=== PATIENT | female | born 1945 | race Caucasian/White ===

== ENCOUNTER 2023-11-30 13:15 | Outpatient (CLI) | payer MEDICARE, SELFPAY ==
--- NOTE | ~2023-11-30 | MR_ITS ---
EXAMINATION: MR lumbar spine wo con, MR thoracic spine wo con DATE: 11/30/2023 14:34 INDICATION: Lumbar radiculopathy TECHNIQUE: 1. Magnetic resonance imaging (MRI) of the thoracic spine was performed without intravenous contrast. Sagittal localizer T1-weighted FSE of the cervicothoracic spine was obtained. Thoracic spine sequenc es included sagittal T2-weighted FSE, sagittal T1-weighted SE, Sagittal T2-weighted FS FSE, and axial T2-weighted FSE. 2. MRI of the lumbar spine was performed without intravenous contrast. Sequences included sagittal T2 -weighted FSE, sagittal T2-weighted FS FSE, sagittal T1-weighted FSE, and axial T2-weighted FSE. COMPARISON: None FINDINGS: Thoracic spine: 10 degrees upper thoracic levoscoliosis and 10 degrees mid to lower thoracic dextroscoliosis. Vertebr al body heights are normal. Moderate disc height loss with degenerative endplate changes at C5-C6 and C6-C7. Associated disc bulges resulting in mild central canal stenosis at both levels. Thoracic disc heights are normal with no disc bulges or central canal stenosis. There is multilevel mild thoracic facet osteoarthritis. This contributes to mild neural foraminal stenosis on the left at T8-T9 and T10 -T11. Visualized paravertebral soft tissues are unremarkable. Lumbar spine: 15 degree lumbar levoscoliosis centered at L2-L3. 2 mm retrolisthesis L2 on L3, L3 on L4 and L4 on L5 . Severe left-sided predominant disc height loss with prominent degenerative endplate changes and ass ociated fibrovascular degenerative endplate changes at L2-L3 and L3-L4. Aside from the degenerative e ndplate remodeling the lumbar vertebral body heights are normal and there is otherwise normal marrow signal. Mild disc height loss at L1-L2 and L5-S1 and moderate left-sided predominant disc height loss at L4-L5. The conus medullaris terminates at L1. There are few T2 hyperintense left renal cysts the largest measuring 3.2 cm. Paravertebral soft tissues are otherwise unremarkable. The following disc l evels are specifically discussed: T12-L1: The disc does not extend beyond the endplate margin. There is mild bilateral facet joint oste oarthritis. There is mild left neural foraminal stenosis. There is no central canal stenosis. L1-L2: Disc is bulging. There is mild to moderate left and no right facet joint osteoarthritis. There is mild bilateral neural foraminal stenosis. There is mild central canal stenosis. L2-L3: Disc is bulging. There is mild to moderate left and mild right facet joint osteoarthritis. The re is moderate right and mild to moderate left neural foraminal stenosis. There is moderate central c anal stenosis. L3-L4: Disc is bulging. There is mild bilateral facet joint osteoarthritis. There is moderate bilater al neural foraminal stenosis. There is severe central canal stenosis. L4-L5: Disc is bulging. There is moderate bilateral facet joint osteoarthritis. There is moderate lef t and mild to moderate right neural foraminal stenosis. There is moderate central canal stenosis. L5-S1: Disc is bulging with superimposed annular fissure and broad-based disc extrusion extending fro m the foraminal zone to foraminal zone with disc material extending up to 6 mm cephalad to the level of the inferior endplate of L5. There is moderate bilateral facet joint osteoarthritis. There is mild right and moderate left neural foraminal stenosis. There is mild central canal stenosis. IMPRESSION: 1. 15 degrees lumbar dextroscoliosis with severe spondylosis. 2. 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 Reviewed, dictated and finalized at location B.
== END 2023-11-30 13:16 ==
LOC: MICIMG 13:15
PROVIDERS: PCP Nurse Practitioner Family; Visit Provider Nurse Practitioner Family
DX: M47.26 Other spondylosis with radiculopathy, lumbar region (principal)
CPT/HCPCS: 72146; 72148